=== PATIENT | male | born 1995 | race Caucasian/White ===

== ENCOUNTER 2018-02-25 13:14 | Inpatient (IN) | payer OTHER, SELFPAY ==
[2018-02-25] VITALS (10 sets, daily range): BP systolic 115–131; BP diastolic 65–86; PULSE 77–104; RESP 16–19; TEMP 36.1–37.2; O2SAT 95–99; BMI 20.7
--- NOTE | 2018-02-25 | PATH_ITS ---
[facility] Accession Number: [id number] . 01 Material submitted: . APPENDIX . 02 Diagnosis: Appendix: Acute appendicitis superimposed upon a chronic inflammatory and fibrotic process with scattered granulomas suggesting the possibility of preexisting Crohn's disease (see microscopic description). Negative for evidence of neoplasm. MRV/03/01/2018 . 02 Electronically signed: . Cnorado Herzog MD, Pathologist NPI- [id number] . 01 Gross description: . Received in formalin, labeled appendix, is an opened appendix in two pieces (length-10.7 cm, diameter-2.0 cm) with madden-pink smooth dull serosa and attached mesoappendix (up to 3.3 cm in depth). The resection margin is received opened. The lumen is void of content. The wall is up to 0.6 cm thick. No nodules, masses or lesions are identified. The resection margin is inked black. Section code: (A1-A3) resection margin en face and multiple procurement representative serial sections; (A4) one-half of the bivalved tip. ([id number]) /[facility] . 02 Microscopic: . Sections are from appendix. The appendiceal wall is markedly thickened and there is an associated transmural acute inflammatory process representing acute appendicitis. This appears to be occurring, however, in the background of a preexisting chronic inflammatory process. The appendiceal wall contains numerous chronic inflammatory cells including lymphocytes, plasma cells, histiocytes and scattered granulomas. There is associated fibrosis which has resulted in the firm thickened appendiceal wall. The changes suggest the possibility of a preexisting chronic inflammatory process, possibly Crohn's disease. Clinical correlation will be necessary for such a specific diagnosis. . 02 Pathologist provided ICD-10: K35.80 . 02 CPT . 473112 Performed at: 01 [facility] [address] [place] [address], [place], [place] [id number] MD Rashel Ramirez MD Phone: [phone] Performed at: 02 [facility] [address] [place], [place] [id number] MD Ryan Fink MD Phone: [phone]
--- NOTE | 2018-02-25 16:09 | PM.HP.1 ---
History of Present Illness Date Patient Seen: 02/25/18 Time Patient Seen: 16:09 Chief complaint: DIRECT ADMIT SURGERY Narrative: Patient is a gentleman with several day history of right lower quadrant pain and nausea. He had chills and night sweats last night that he might have run a fever. He has never had pain like this before. It increases with movement. Feels a little better since he was in the ER and got some pain medication. Patient History Medical History Anxiety (Chronic) Surgical History History of tonsillectomy (Resolved) Family & Social History Social History: Smokes a few cigarettes a day Meds Home Medications Medication Instructions Recorded Confirmed Type No Known Home Medications 02/25/18 02/25/18 History Review of Systems Review of Systems All systems reviewed & are unremarkable except as noted in HPI and below Exam Narrative Exam Narrative: Operative no apparent distress lungs are clear to auscultation no rales or rhonchi. Heart regular rate and rhythm with no murmur gallop no heave lift or thrill. There are no nodes in the neck or supraclavicular areas. His abdomen is scaphoid soft tender in the right lower quadrant r without masses. No guarding. Liver and spleen are not enlarged. Alert and oriented x3. Objective Labs Labs: Very little fat intra-abdominally. Report suggests the presence of appendicitis per referring doctor in the emergency room Assessment & Plan Plan: Assessment/Plan Narrative: Patient with a good history and physical exam for appendicitis. Will proceed to laparoscopic appendectomy. I have discussed procedure rationale. Risks of bleeding infection abscess formation all discussed. He appears to understand wishes to proceed. Ultimate diagnosis also discussed
[2018-02-25] MEDS: LACTATED RINGERS 1,000 ML 42 ML IV (16:17)
--- NOTE | 2018-02-25 16:25 | PM.PREOP ---
Pre-operative Note Interval Note Pre-op Check: Yes History & Physical exam performed today by Physician Changes: No
[2018-02-25] MEDS: PIPERACILLIN-TAZO 3.375 GM/50 ML FROZ.PIGGY IV ×2 (16:30→22:08)
--- NOTE | 2018-02-25 17:00 | SUR.OPER ---
Supine on padded OR bed, head on pillow, arms secured on padded arm boards at <90 degrees abduction, legs uncrossed, safety belt at thigh, tape over blanket over lower legs.
[2018-02-25] MEDS: BUPIVACAINE 0.5% (PF) VIAL 30 ML INJ (17:11)
[2018-02-25] MEDS: HYDROMORPHONE 2 MG INJ 0.5 MG IV (18:26)
[2018-02-25] MEDS: HYDROMORPHONE 2 MG INJ 0.25 MG IV (18:40)
[2018-02-25] MEDS: KETOROLAC 15 MG/ML VIAL IV (19:15)
[2018-02-25] MEDS: HYDROCODONE/ACET 5/325 TABLET 2 TAB PO (19:17)
[2018-02-25] MEDS: DEXTROSE 5%-0.45% NS 1,000 ML 100 ML IV (19:19)
--- NOTE | 2018-02-25 20:08 | PM.OP.1 ---
Operative Date/Time/Diagnoses Date of procedure: 02/25/18 Time of procedure: 18:11 Pre-op diagnosis: Acute appendicitis. Post-op diagnosis: same (Acute appendicitis and a possible early right inguinal hernia that is not apparent on external exam) Procedure & Clinicians Procedure: Laparoscopic appendectomy Same procedure as scheduled: Yes Indications: Signs and symptoms consistent with acute appendicitis Surgeon: Eriberto Gann Click Yes if Unassisted: Yes Anesthesia Type: General Operative Notes Findings: Thickened dilated appendix rolled into what appeared to be a possible early right inguinal hernia. Pus drained from the region as I released the appendix. Closure Type: primary Specimen(s): other (Appendix) Implants & Drains: 7 mm John-Voss Estimated Blood Loss (mL): 5 Blood products transfused: none Procedure in detail: The patient is placed supine on the operating room table and underwent general endotracheal anesthesia. He was prepped and draped in the usual fashion. Curvilinear incision was made beneath the umbilicus and carried down under direct vision in the peritoneal cavity. Stay sutures of 0 Vicryl were placed in the fascia. An Angie cannula was inserted. The abdomen was insufflated. Two additional ports were placed 1 between the umbilicus and pubis and 1 in left lower quadrant. The appendix was identified as a structure stuck to the anterior abdominal wall in an area where 1 might find an inguinal hernia. It was quite thickened and bulbous at the and and as I bluntly dissected it off the anterior abdominal wall alicia pus drained. I released it and the mesoappendix was from the base of the appendix and a 0 Vicryl tie was placed across the mesoappendix and cinched down tightly. The mesoappendix was divided distal to this with cautery. A loop was placed across the base of the appendix and cinched down. The clamp was placed across the appendix distal to this and the appendix was transected and immediately placed in a bag without any spillage. The bag was removed without difficulty. On examining the appendix it was sliced open the tip had actually from the appendix in removing it through the incision. The area was thickened but I want a not certain if this is neoplastic or just from inflammation. The specimen was submitted to pathology. The base of the appendix was cauterized. The right lower quadrant and pelvis were irrigated and suctioned free of fluid. A 7 mm John-Voss flat drain was placed into the pelvis along the right gutter. It was secured with a 2 0 PDS. The ports were all removed. They were irrigated. Stay sutures at the umbilicus were tied and an additional 2 0 was placed between them of Maxon material. The skin was closed in all areas with interrupted 4 0 Polysorb subcuticular stitches and Steri-Strips. Dressings were applied the patient was taken recovery area in good condition. Complications: none Condition: stable Plan for aftercare: To observation. Will probably require a day or 2 of IV antibiotics. Given the thanks alicia pus found this most likely represents a perforated appendicitis
[2018-02-25] MEDS: GABAPENTIN 300 MG CAPSULE PO (20:41)
[2018-02-25] MEDS: CALCIUM CARBONATE 500 MG TAB PO (20:44)
[2018-02-25] MEDS: HYDROMORPHONE 2 MG INJ 1 MG IV (22:09)
[2018-02-26] VITALS (8 sets, daily range): BP systolic 107–127; BP diastolic 66–78; PULSE 55–99; RESP 15–20; TEMP 36.7–39.3; O2SAT 94–99
[2018-02-26] MEDS: HYDROMORPHONE 2 MG INJ 1 MG IV (00:28)
[2018-02-26] MEDS: HYDROCODONE/ACET 5/325 TABLET 2 TAB PO ×4 (03:38→22:32)
[2018-02-26] MEDS: KETOROLAC 15 MG/ML VIAL IV ×2 (03:39→14:31)
[2018-02-26] MEDS: PIPERACILLIN-TAZO 3.375 GM/50 ML FROZ.PIGGY IV ×4 (03:42→22:32)
[2018-02-26] MEDS: ONDANSETRON 4 MG/2 ML INJ IV ×2 (05:54→16:28)
[2018-02-26] MEDS: ENOXAPARIN 40 MG/0.4 ML SYRINGE SUBCUT (07:47)
[2018-02-26] MEDS: HYDROMORPHONE 1 MG INJ IV ×2 (07:47→19:30)
[2018-02-26] MEDS: GABAPENTIN 300 MG CAPSULE PO ×2 (07:47→20:28)
--- NOTE | 2018-02-26 09:09 | PC.NURSE ---
Pt alert oriented rates pain to abdomen 5/10, requesting some pain medication. Given 1 mg Dilaudid.
--- NOTE | 2018-02-26 12:43 | CM.DANOTE ---
DCP: assessment: case received, EMR reviewed and met with pt and his mother/rooming in. Introduced self and role. Payer: [place] PCP: Dr. Gomez Bejarano Pt is a 23 year old male who admitted to care of General Surgery yesterday. Emergent lap appy for a perforated appedicitis was done yesterday. Pt is sitting up in bed, smiling. Says I feel a whole lot better. P: home when stable for same. Mother to transport.
--- NOTE | 2018-02-26 13:02 | PM.PNPO.1 ---
Subjective Date Patient Seen: 02/26/18 Time Patient Seen: 08:03 Interval history: Patient postop day 1.. More pain than preop but better than last night. No nausea. Tolerating diet thus far. Exam Vital Signs (past 8 hours): - 02/26/18 06:17 02/26/18 08:30 02/26/18 11:57 Temperature 98.2 F 98.2 F 98.6 F Pulse Rate 63 72 67 Respiratory Rate 16 18 16 Blood Pressure 114/68 117/71 107/66 Pulse Oximetry 99 95 96 Oxygen Delivery Method Room Air Oxygen Flow Rate 0 Narrative Exam Narrative: Operative no apparent distress. Lungs are clear. Fair effort. Heart regular rate and rhythm without murmur gallop. Abdomen is scaphoid soft. His bandages were all intact and dry. Assessment & Plan Post-op Postoperative Procedures Operation Date: 02/25/18 18:30 Actual Procedures Side Surgeon p Laparoscopic Appendectomy Eriberto Gann MD Postoperative plan narrative: Continue broad-spectrum IV antibiotics. DVT prophylaxis. Encourage ambulation and advanced diet as tolerated. Possible removal of drain and discharge tomorrow depending on labs vitals and how he feels. Quality VTE Deep Vein Thrombosis/Pulmonary Embolism Present on Admission: No
[2018-02-26] MEDS: DEXTROSE 5%-0.45% NS 1,000 ML 100 ML IV (17:41)
[2018-02-26] MEDS: CALCIUM CARBONATE 500 MG TAB PO (19:34)
[2018-02-27] VITALS (9 sets, daily range): BP systolic 115–133; BP diastolic 59–81; PULSE 59–88; RESP 16–24; TEMP 36.8–39.1; O2SAT 96–98
[2018-02-27] MEDS: ACETAMINOPHEN 325 MG TABLET 650 MG PO (00:25)
[2018-02-27] MEDS: PIPERACILLIN-TAZO 3.375 GM/50 ML FROZ.PIGGY IV ×4 (05:10→21:54)
[2018-02-27] MEDS: HYDROCODONE/ACET 5/325 TABLET 2 TAB PO ×3 (05:12→21:53)
[2018-02-27 06:21] LABS: Add Manual Diff / Slide Review NO; Basophils Percent Auto 0.3 % (0-2); Eosinophils Percent Auto 0.3 % (2-4); Hematocrit 40.8 % (41-53); Hemoglobin 14.2 g/dL (13.5-17.5); Lymphocytes Percent Auto 9.1 % (25-40); Mean Corpuscular Hemoglobin 30.9 PG (26-34); Mean Corpuscular Volume 88.5 fL (80-100); Neutrophils Absolute Auto 8200 /uL (3000-5900); Neutrophils Percent Auto 81.3 % (50-75); Platelet Count 307 X10^3/uL (150-400); Red Cell Distribution Width 13.6 % (11.6-14.8); White Blood Cell Count 10.1 X10^3/uL (4.5-11.0)
--- NOTE | 2018-02-27 06:24 | PC.NURSE ---
Pt had a fever of 102.7F, perfusely sweating, Dr. Maldonado contacted and prescribed Tylenol. Ice bags were placed under patient's arm pits to help bring down his fever. Temperature is now at 100.2F. IVF and ABX running as ordered. Patient was concerned his incision site was infected so i pulled back the gauze/tegaderm site and it looked clean, dry, and intact, no puss or drainage noted, I could see a stitch, I did not see any redness around the site. Pain is well controlled. given only 2 Vicodin towards end of shift. Patient stated he has not passed any gas yet since surgery and no BM
[2018-02-27 06:41] LABS: Procalcitonin 0.05 ng/mL (<0.5)
[2018-02-27] MEDS: ENOXAPARIN 40 MG/0.4 ML SYRINGE SUBCUT (09:51)
[2018-02-27] MEDS: GABAPENTIN 300 MG CAPSULE PO ×2 (09:51→20:40)
[2018-02-27] MEDS: KETOROLAC 15 MG/ML VIAL IV (09:53)
[2018-02-27] MEDS: CALCIUM CARBONATE 500 MG TAB PO (10:04)
--- NOTE | 2018-02-27 13:20 | PM.PN.1 ---
Subjective Date Patient Seen: 02/27/18 Time Patient Seen: 13:20 Interval history: Patient denies pain but did have fevers throughout the night. He currently feels mildly warm subjectively. No nausea or vomiting. However, his appetite is poor. Has had a minimal amount of flatus this morning for the 1st time since surgery. No bowel movement. Feels subjectively mildly distended. No dysuria. Ambulates without issues. Exam Vital Signs (past 8 hours): - 02/27/18 08:10 02/27/18 11:05 Temperature 100.0 F H 98.6 F Pulse Rate 78 81 Respiratory Rate 24 20 Blood Pressure 121/75 115/76 Pulse Oximetry 96 96 Oxygen Delivery Method Room Air Oxygen Flow Rate 0 Narrative Exam Narrative: Well-nourished well-developed thin male in no acute distress. Alert oriented x3. Family is at the bedside for my entire visit Looks mildly flushed but not diaphoretic. Regular rate and rhythm No wheezes Abdomen is mildly distended but not particularly tympanitic. He is otherwise soft. Appropriately tender to palpation. Wounds are clean, dry, and intact including the drain site. No erythema or ecchymosis. Extremities show no clubbing, cyanosis, or edema Objective Labs Result Diagrams: 02/27/18 05:58 Labs: Laboratory Results - last 24 hr 02/27/18 02/27/18 05:58 05:58 WBC 10.1 RBC 4.60 Hgb 14.2 Hct 40.8 L MCV 88.5 MCH 30.9 MCHC 35.0 RDW 13.6 Plt Count 307 Neut % (Auto) 81.3 H Lymph % (Auto) 9.1 L Lar[place] % (Auto) 9.0 Eos % (Auto) 0.3 L Baso % (Auto) 0.3 Neut # (Auto) 8200 H Procalcitonin 0.05 Assessment & Plan Plan: Assessment/Plan Narrative: 23-year-old male postoperative day 2 from laparoscopic appendectomy for perforated appendicitis with ongoing fevers consistent with his drained abdominal abscess. Drain output itself is serosanguineous and otherwise normal. We will continue the drain at this time. He may shower. Ambulate aggressively. Continue diet as tolerated. Assist bowel function. Oral analgesia as needed. Continue IV fluids however since his oral intake is quite poor at this time. Because he continues to have fevers we will continue the intravenous Zosyn despite an otherwise normal procalcitonin level and white blood cell count. Obviously he cannot be discharged home today while he is febrile and requiring intravenous medications. I discussed all of this with him and his family in detail. Questions were answered to his satisfaction, and he voiced understanding. Orders were written. Quality VTE Deep Vein Thrombosis/Pulmonary Embolism Present on Admission: No
[2018-02-27] MEDS: DEXTROSE 5%-0.45% NS 1,000 ML 100 ML IV (15:55)
[2018-02-27] MEDS: DOCUSATE 100 MG CAPSULE PO (20:40)
[2018-02-27] MEDS: SENNOSIDES 8.6 MG TABLET PO (20:40)
[2018-02-28] MEDS: DEXTROSE 5%-0.45% NS 1,000 ML 100 ML IV (04:35)
[2018-02-28] MEDS: PIPERACILLIN-TAZO 3.375 GM/50 ML FROZ.PIGGY IV ×2 (04:35→11:15)
[2018-02-28] MEDS: HYDROCODONE/ACET 5/325 TABLET 2 TAB PO ×3 (04:37→15:51)
[2018-02-28 05:34] VITALS: BP 121/70; PULSE 68; RESP 16; TEMP 37.4; O2SAT 97
[2018-02-28 08:45] VITALS: BP 119/70; PULSE 59; RESP 20; TEMP 36.6; O2SAT 98
[2018-02-28] MEDS: GABAPENTIN 300 MG CAPSULE PO (09:57)
[2018-02-28] MEDS: DOCUSATE 100 MG CAPSULE PO (09:57)
[2018-02-28] MEDS: ENOXAPARIN 40 MG/0.4 ML SYRINGE SUBCUT (09:57)
[2018-02-28 11:15] VITALS: BP 112/67; PULSE 58; RESP 16; TEMP 36.7; O2SAT 98
--- NOTE | 2018-02-28 15:36 | PM.DS.1 ---
History of Present Illness Date Patient Seen: 02/28/18 Time Patient Seen: 15:36 Chief complaint: DIRECT ADMIT SURGERY Narrative: 23-year-old male who presented to the emergency department with progressive right-sided abdominal pain localizing to the right lower quadrant suprapubic area. Examination and evaluation were consistent with acute appendicitis. He was therefore taken from the emergency department to the operating room for lap appendectomy. Discharge Providers Date of admission: 02/25/18 13:14 Primary care physician: Debbie Bejarano MD Consults: 02/25/18 19:08 Consult to Discharge Planning Routine Comment: Discharge provider: Maikol Maldonado MD Discharge Date: 02/28/18 Summary Discharge Diagnosis: 1. Perforated acute appendicitis with abscess 2. Laparoscopic appendectomy with drainage of abscess February 25, 2018 3. Anxiety 4. History of tonsillectomy Hospital Course: Patient was taken to the operating room as above for laparoscopic appendectomy which he tolerated well. He was admitted to the regular surgical floor postoperatively where he remained hemodynamically stable. However, he was experiencing ongoing intermittent fevers to as high as 102.0? on postoperative day 2. [place] [id number] and his procalcitonin level had returned to normal. He had been maintained on intravenous Zosyn since admission. Drain was collecting serosanguineous fluid only. At the time of discharge total output was approximately 30 cc and therefore the drain was removed without difficulty. Wounds are otherwise healing well without evidence of infection or abnormalities. Patient has been ambulating. He is tolerating a regular diet at time of discharge. No nausea or vomiting. Pain is minimal and well controlled with oral Vicodin. He is having no dysuria. He has had spontaneous return of normal bowel bladder function otherwise. Because of his overall stable condition he is discharged home on postoperative day 3. He will follow up within 2 weeks in the surgery clinic. However, he has been instructed to call or return sooner if he has any issues with fevers, chills, nausea, vomiting, inability to tolerate a diet, progressive abdominal pain, or unusual wound drainage. All questions were answered to his satisfaction, and he voiced understanding. Status at Discharge Cognitive/behavioral status at discharge: Alert, oriented x3 Functional status at discharge: independent ambulation Overall status at discharge: patient is progressing back to baseline Time Spent with Patient Less than 30 minutes Exam Vital Signs (past 8 hours): - 02/28/18 08:45 02/28/18 11:15 Temperature 97.8 F 98.0 F Pulse Rate 59 L 58 L Respiratory Rate 20 16 Blood Pressure 119/70 112/67 Pulse Oximetry 98 98 Oxygen Delivery Method Room Air Oxygen Flow Rate 0 Narrative Exam Narrative: Patient well-nourished well-developed lying comfortably in bed in no acute distress. He just finished ambulating in the hallways without issue. He has been afebrile with maximum temperature 98.0? since 3 o'clock yesterday afternoon. No tachycardia. Normal blood pressure Sclera nonicteric Regular rate and rhythm. No wheezes or crackles in bilateral lung laughlin Abdomen is soft, nondistended, minimally tender. No guarding or rebound. Incisions are clean, dry, and intact. No erythema or ecchymosis. Drain site is clean after removal. Drain output itself was only serosanguineous. Extremities show no clubbing, cyanosis, or edema Objective Labs Result Diagrams: 02/27/18 05:58 Labs: No new radiographic studies for review since surgery Discharge Plan Discharge Plan Patient Disposition: Home Discharge Med Rec/Prescriptions Prescriptions: New acetaminophen 325 mg Tablet 650 mg PO Q6HR PRN (Reason: As Needed For Fever/Mild Pain) Qty: 40 RF: 0 docusate sodium 100 mg Capsule 100 mg PO BID Qty: 20 RF: 0 sennosides [senna] 8.6 mg Tablet 8.6 mg PO BEDTIME Qty: 10 RF: 0 hydrocodone-acetaminophen 5-325 mg Tablet 2 tab PO Q6HR PRN (Reason: Pain, Severe (7-10)) Qty: 30 RF: 0 gabapentin 300 mg capsule 300 mg PO BID Qty: 20 RF: 0 amoxicillin-pot clavulanate 875-125 mg tablet 1 tab PO BID Qty: 14 RF: 0 Follow up/Referrals: Eriberto Gann MD [Physician] - 2 Weeks (Please call office for exact appointment time and date) Provider Discharge Instructions Diet: Diet as Tolerated Activity: No lifting more than 20 lb until further notice No driving while taking opioid pain medications May walk as much as desired May climb stairs Cold/Heat Therapy: May apply ice packs or heating pad to incisions as needed for comfort Skin/Wound/Dressing Care Report to your healthcare provider any signs of infection, such as:: chills, fever, increased pain and unusual drainage Dressing: May change dressing over drain site after shower and as often as needed Do not soak incision in bathtub or pool for 2 weeks Steri-Strips will begin to dislodge within next week or so. May remove them at that time. Other wound treatment: Expect some ongoing mild drainage from the old drain site for 2-3 days before it seals Discharge Data Primary Care Provider: Debbie Bejarano Attending Provider: Eriberto Gann [place] Date/Time: 02/25/18 13:14 Quality VTE Deep Vein Thrombosis/Pulmonary Embolism Present on Admission: No
[2018-02-28 15:54] VITALS: BP 124/80; PULSE 58; RESP 16; TEMP 36.7; O2SAT 99
== END 2018-02-28 16:40 | disposition home or self-care (01) | DRG 340 ==
PROVIDERS: Admitting Provider Specialist; PCP Family Medicine Geriatric Medicine; Visit Provider Specialist
PROC: 0DTJ4ZZ Resection of Appendix, Percutaneous Endoscopic Approach (ICD-10-PCS; CPT 44970; principal; 2018-02-25 18:30)
DX: K35.33 Acute appendicitis with perforation, localized peritonitis, and gangrene, with abscess (principal); F17.210 Nicotine dependence, cigarettes, uncomplicated
CPT/HCPCS: 36415; 44970; 84145; 85025; 99221; 99406; J0330; J1100; J1170; J1650; J1885; J2250; J2405; J2543; J2704; J3010